=== PATIENT | female | born 1975 | race African-American/Black ===

== ENCOUNTER 2021-06-10 11:44 | Emergency (ER) | payer OTHER ==
[2021-06-10] MEDS ORDERED: Ketorolac Tromethamine 30 MG/ML VIAL ONE (13:57)
== END 2021-06-10 14:06 | disposition home or self-care (01) ==
LOC: CSHERS 11:44
DX: J11.1 Influenza due to unidentified influenza virus with other respiratory manifestations (principal)
CPT/HCPCS: 96372; 99283; J1885

== ENCOUNTER 2023-01-30 14:12 | Emergency (ER) | payer OTHER | END 2023-01-30 15:04 | disposition home or self-care (01) | LOC: CSHERS 14:12 | DX: M32.9 Systemic lupus erythematosus, unspecified (principal); M54.30 Sciatica, unspecified side | CPT/HCPCS: 99283 ==

== ENCOUNTER 2023-02-06 13:03 | Emergency (ER) | payer OTHER | END 2023-02-06 13:34 | disposition left against medical advice (07) | LOC: CSHERS 13:03 | DX: Z53.21 Procedure and treatment not carried out due to patient leaving prior to being seen by health care provider (principal) ==

== ENCOUNTER 2024-11-05 13:41 | Inpatient (IN) | payer MEDICAID, OTHER ==
[~2024-11-05 13:41] MED LIST: Iopamidol 370 76% 100 ML VIAL ONE
[2024-11-05 14:28] LABS: Hematocrit 35.3 % (34.9-44.5); Hemoglobin 12.4 g/dL (12.0-15.5); Mean Corpuscular Hemoglobin 31.8 pg (27.0-33.0); Mean Corpuscular Volume 90.5 fL (81.6-98.3); Platelet Count 327 10x3/uL (150-450); Red Blood Cell (RBC) Count 3.90 10x6/uL (3.90-5.03); White Blood Cell (WBC) Count 19.99 10x3/uL (3.5-10.5)
[2024-11-05 14:34] LABS: BHCG - Serum Negative (NEGATIVE); Pregs Control Background? CLEAR/WHITE (CLR/WHITE); Pregs Control Bar Appear? YES (CONTROL BAR)
[2024-11-05 14:44] LABS: ALT (SGPT) 10 U/L (Less than 34); AST (SGOT) 21 U/L (11-34); Albumin 3.9 g/dL (3.1-4.5); Alkaline Phosphatase 77 U/L (40-110); Anion Gap 17 mmol/L (10-20); BUN (Urea Nitrogen) 8 mg/dL (9.8-20.1); Bilirubin, Total 0.4 mg/dL (0.3-1.2); Calc. Creatinine Clearance 0 mL/min (70-130); Calcium 9.2 mg/dL (7.8-10.44); Carbon Dioxide 20 mmol/L (22-29); Chloride 108 mmol/L (98-107); Globulin 3.3 g/dL (2.4-3.5); Glucose 127 mg/dL (70-105); Lipase 11 U/L (8-78); Potassium 3.8 mmol/L (3.5-5.1); Sodium 141 mmol/L (136-145); Troponin I Less than 0.010 ng/mL (< 0.028)
[2024-11-05] MEDS ORDERED: cefTRIAXone (ROCEPHIN) 1 GM VIAL ONE (15:18)
[2024-11-05] MEDS ORDERED: Azithromycin 500 MG VIAL ONE (15:19)
[2024-11-05] MEDS ORDERED: Calcium Carbonate 500 MG ChewTAB PO PRN (15:38)
[2024-11-05] MEDS ORDERED: Melatonin 3 MG TAB PO PRN (15:38)
[2024-11-05] MEDS ORDERED: Senokot S 8.6-50 MG TAB PO PRN (15:38)
[2024-11-05 15:47] LABS: MDiff Complete? YES; Platelet Adequacy Comment Appears Adequate; RBC Morphology Within Normal Limits
[2024-11-05] MEDS ORDERED: Ondansetron PF 4 MG/2 ML Vial ONE (16:36)
[2024-11-05 17:16] LABS: Glucose, Urine (Dipstick) Normal (Negative); Leukocyte Negative (Negative); Protein, Urine (Dipstick) 30 mg/dl (Neg-Trace); Specific Gravity, Urine 1.005 (1.005-1.030)
[2024-11-05 17:44] LABS: Bacteria/HPF Rare-Few HPF (None Seen); CAUTI Indications for Culture Pelvic or flank pain; RBC/HPF 21-50 HPF (0-3); WBC/HPF 0-3 HPF (0-3)
[2024-11-05 17:45] LABS: Urine Culture Reflex No No
[2024-11-05 19:48] VITALS: BMI 52.9
[2024-11-06] MEDS: Guaifenesin DM 100-10/5 ML UDCUP PO PRN (00:24)
[2024-11-06 00:51] LABS: Legionella Urinary Ag Negative (Negative)
[2024-11-06 00:52] LABS: Strep pneumo Urine Ag NEGATIVE (NEGATIVE)
[2024-11-06] MEDS: Acetaminophen 325 MG TAB PO PRN (01:07)
[2024-11-06 04:37] LABS: #Basophils Less than 0.03 10x3/uL (0.0-0.2); #Eosinophils Less than 0.03 10x3/uL (0.0-0.5); #Monocytes 0.27 10x3/uL (0.0-1.1); #Neutrophils 14.72 10x3/uL (1.5-8.4); %Basophils 0.1 % (0.0-2.0); %Eosinophils 0.0 % (0.0-6.0); %Lymphocytes 7.1 % (18.0-47.0); %Monocytes 1.7 % (0.0-10.0); %Neutrophils 90.4 % (40.0-75.0); Hematocrit 34.3 % (34.9-44.5); Hemoglobin 11.7 g/dL (12.0-15.5); Mean Corpuscular Hemoglobin 31.0 pg (27.0-33.0); Mean Corpuscular Volume 90.7 fL (81.6-98.3); Platelet Count 310 10x3/uL (150-450); Red Blood Cell (RBC) Count 3.78 10x6/uL (3.90-5.03); White Blood Cell (WBC) Count 16.27 10x3/uL (3.5-10.5)
[2024-11-06 04:51] LABS: Anion Gap 14 mmol/L (10-20); BUN (Urea Nitrogen) 10 mg/dL (9.8-20.1); Calc. Creatinine Clearance 176 mL/min (70-130); Calcium 9.3 mg/dL (7.8-10.44); Carbon Dioxide 23 mmol/L (22-29); Chloride 109 mmol/L (98-107); Glucose 151 mg/dL (70-105); Potassium 3.8 mmol/L (3.5-5.1); Sodium 142 mmol/L (136-145)
[2024-11-06] MEDS: Enoxaparin 40 MG (0.4 mL) SYRINGE SC SCH (08:33)
[2024-11-06] MEDS: Topiramate 100 MG TAB PO SCH (10:22)
[2024-11-06] MEDS: cefTRIAXone\\ROCEPHIN 1 GM in Sodium Chloride 0.9% 100 ML IVPB SCH (13:06)
[2024-11-06 14:07] VITALS: BMI 52.9
[2024-11-06] MEDS: Furosemide 20 MG TAB PO SCH (16:44)
[2024-11-06] MEDS: Ondansetron PF 4 MG/2 ML Vial IVP PRN (20:28)
[2024-11-07 04:07] LABS: #Basophils 0.05 10x3/uL (0.0-0.2); #Eosinophils 0.13 10x3/uL (0.0-0.5); #Monocytes 1.09 10x3/uL (0.0-1.1); #Neutrophils 11.68 10x3/uL (1.5-8.4); %Basophils 0.3 % (0.0-2.0); %Eosinophils 0.8 % (0.0-6.0); %Lymphocytes 20.8 % (18.0-47.0); %Monocytes 6.6 % (0.0-10.0); %Neutrophils 71.1 % (40.0-75.0); Hematocrit 35.6 % (34.9-44.5); Hemoglobin 11.9 g/dL (12.0-15.5); Mean Corpuscular Hemoglobin 30.7 pg (27.0-33.0); Mean Corpuscular Volume 92.0 fL (81.6-98.3); Platelet Count 334 10x3/uL (150-450); Red Blood Cell (RBC) Count 3.87 10x6/uL (3.90-5.03); White Blood Cell (WBC) Count 16.44 10x3/uL (3.5-10.5)
[2024-11-07 04:21] LABS: Anion Gap 12 mmol/L (10-20); BUN (Urea Nitrogen) 15 mg/dL (9.8-20.1); Calc. Creatinine Clearance 136 mL/min (70-130); Calcium 9.4 mg/dL (7.8-10.44); Carbon Dioxide 29 mmol/L (22-29); Chloride 109 mmol/L (98-107); Glucose 108 mg/dL (70-105); Potassium 4.1 mmol/L (3.5-5.1); Sodium 146 mmol/L (136-145)
[2024-11-07] MEDS: HYDROcodone/Acetaminophen 5/325 mg Tablet PO PRN (08:04)
[2024-11-07] MEDS: Pantoprazole 40 MG DR.TAB PO SCH (08:06)
[2024-11-07] MEDS: Albuterol 2.5 MG (3 mL) NEB NEB PRN (08:12)
[2024-11-07] MEDS ORDERED: Torsemide 20 MG TAB PO SCH (09:00)
[2024-11-07] MEDS ORDERED: TOPIRAMATE 200 MG PO SCH (09:00)
[2024-11-08 08:47] LABS: #Basophils 0.05 10x3/uL (0.0-0.2); #Eosinophils 0.42 10x3/uL (0.0-0.5); #Monocytes 0.79 10x3/uL (0.0-1.1); #Neutrophils 7.74 10x3/uL (1.5-8.4); %Basophils 0.4 % (0.0-2.0); %Eosinophils 3.6 % (0.0-6.0); %Lymphocytes 21.5 % (18.0-47.0); %Monocytes 6.9 % (0.0-10.0); %Neutrophils 67.3 % (40.0-75.0); Hematocrit 35.3 % (34.9-44.5); Hemoglobin 11.9 g/dL (12.0-15.5); Mean Corpuscular Hemoglobin 31.0 pg (27.0-33.0); Mean Corpuscular Volume 91.9 fL (81.6-98.3); Platelet Count 339 10x3/uL (150-450); Red Blood Cell (RBC) Count 3.84 10x6/uL (3.90-5.03); White Blood Cell (WBC) Count 11.51 10x3/uL (3.5-10.5)
[2024-11-08 09:03] LABS: Anion Gap 15 mmol/L (10-20); BUN (Urea Nitrogen) 15 mg/dL (9.8-20.1); Calc. Creatinine Clearance 165 mL/min (70-130); Calcium 9.0 mg/dL (7.8-10.44); Carbon Dioxide 24 mmol/L (22-29); Chloride 108 mmol/L (98-107); Glucose 111 mg/dL (70-105); Potassium 3.5 mmol/L (3.5-5.1); Sodium 143 mmol/L (136-145)
[2024-11-08] MEDS: Gabapentin 300 MG CAP PO SCH ×2 (10:36→14:56)
[2024-11-08 11:51] LABS: Troponin I Less than 0.010 ng/mL (< 0.028)
[2024-11-09 09:59] VITALS: BP 134/75; TEMP 99.4
== END 2024-11-09 12:20 | disposition home or self-care (01) | DRG 871 ==
LOC: CSHERS 13:41 → CSHERHOLD 15:23 → CSHTELE 19:06
PROVIDERS: ADMIT Internal Medicine; ATTEND Hospitalist
DX: A40.0 Sepsis due to streptococcus, group A (principal); J15.4 Pneumonia due to other streptococci; Z68.43 Body mass index [BMI] 50.0-59.9, adult; R65.20 Severe sepsis without septic shock; M06.9 Rheumatoid arthritis, unspecified; I10 Essential (primary) hypertension; E03.9 Hypothyroidism, unspecified; E66.813 Obesity, class 3; R73.03 Prediabetes; Z79.51 Long term (current) use of inhaled steroids; Z79.899 Other long term (current) drug therapy; Z88.2 Allergy status to sulfonamides; Z88.8 Allergy status to other drugs, medicaments and biological substances; Z98.891 History of uterine scar from previous surgery; Z98.51 Tubal ligation status; Z79.84 Long term (current) use of oral hypoglycemic drugs; G62.9 Polyneuropathy, unspecified; Z91.018 Allergy to other foods; Z90.711 Acquired absence of uterus with remaining cervical stump; F31.9 Bipolar disorder, unspecified; M32.9 Systemic lupus erythematosus, unspecified
CPT/HCPCS: 36415; 71275; 80048; 80053; 81001; 83036; 83605; 83690; 83880; 84145; 84439; 84443; 84484; 84703; 85025; 86140; 87040; 87070; 87077; 87081; 87205; 87400; 87426; 87449; 87633; 87899; 93005; 93010; 94640; 94760; 96374; 96375; J0456; J0696; J1650; J2405; J2919; J7611; J7620; Q9967

== ENCOUNTER 2024-11-19 11:44 | Emergency (ER) | payer OTHER ==
[2024-11-19 12:56] LABS: #Basophils 0.04 10x3/uL (0.0-0.2); #Eosinophils 0.22 10x3/uL (0.0-0.5); #Monocytes 0.51 10x3/uL (0.0-1.1); #Neutrophils 3.79 10x3/uL (1.5-8.4); %Basophils 0.6 % (0.0-2.0); %Eosinophils 3.3 % (0.0-6.0); %Lymphocytes 31.5 % (18.0-47.0); %Monocytes 7.6 % (0.0-10.0); %Neutrophils 56.9 % (40.0-75.0); Hematocrit 36.7 % (34.9-44.5); Hemoglobin 12.1 g/dL (12.0-15.5); Mean Corpuscular Hemoglobin 30.5 pg (27.0-33.0); Mean Corpuscular Volume 92.4 fL (81.6-98.3); Platelet Count 303 10x3/uL (150-450); Red Blood Cell (RBC) Count 3.97 10x6/uL (3.90-5.03); White Blood Cell (WBC) Count 6.67 10x3/uL (3.5-10.5)
[2024-11-19 13:13] LABS: ALT (SGPT) 14 U/L (Less than 34); AST (SGOT) 22 U/L (11-34); Albumin 4.2 g/dL (3.1-4.5); Alkaline Phosphatase 71 U/L (40-110); Anion Gap 11 mmol/L (10-20); BUN (Urea Nitrogen) 8 mg/dL (9.8-20.1); Bilirubin, Total 0.4 mg/dL (0.3-1.2); Calc. Creatinine Clearance 0 mL/min (70-130); Calcium 9.7 mg/dL (7.8-10.44); Carbon Dioxide 28 mmol/L (22-29); Chloride 108 mmol/L (98-107); Globulin 3.4 g/dL (2.4-3.5); Glucose 88 mg/dL (70-105); Lipase 13 U/L (8-78); Potassium 3.7 mmol/L (3.5-5.1); Sodium 143 mmol/L (136-145)
[2024-11-19 13:16] LABS: Troponin I Less than 0.010 ng/mL (< 0.028)
[2024-11-19] MEDS ORDERED: cefTRIAXone (ROCEPHIN) 1 GM VIAL ONE (13:23)
[2024-11-19 15:10] LABS: Glucose, Urine (Dipstick) Normal (Negative); Leukocyte 25 (Negative); Protein, Urine (Dipstick) 15 mg/dl (Neg-Trace); Specific Gravity, Urine 1.010 (1.005-1.030)
[2024-11-19] MEDS ORDERED: Azithromycin 250 MG TAB ONE (15:36)
[2024-11-19 15:55] LABS: Bacteria/HPF None Seen HPF (None Seen); CAUTI Indications for Culture Fever or rigors; RBC/HPF None Seen HPF (0-3); Urine Culture Reflex No No; WBC/HPF 0-3 HPF (0-3)
== END 2024-11-19 16:05 | disposition home or self-care (01) ==
LOC: CSHERS 11:44
DX: N39.0 Urinary tract infection, site not specified (principal); N20.0 Calculus of kidney; R05.1 Acute cough; I10 Essential (primary) hypertension
CPT/HCPCS: 36415; 70450; 71046; 71275; 74177; 80053; 81001; 83605; 83690; 83880; 84484; 85025; 87040; 87086; 87428; 93005; 94640; 96374; 96375; J0696; J2919; J7620